=== PATIENT | male | born 1985 | race Caucasian/White ===

== ENCOUNTER 2017-01-11 15:29 | Emergency (ER) | payer OTHER | END 2017-01-11 16:53 | disposition home or self-care (01) | LOC: FER 15:29 | DX: J10.1 Influenza due to other identified influenza virus with other respiratory manifestations (principal); R09.1 Pleurisy | CPT/HCPCS: 71020; 87804; 87899; 93005 ==

== ENCOUNTER 2017-01-25 16:04 | Emergency (ER) | payer OTHER ==
[2017-01-25 16:39] LABS: BASOPHIL 0.3 % (0-2); EOSINOPHIL 0.3 % (0-5); HCT 42.7 % (42.0-52.0); HGB 14.4 g/dl (13.2-18.0); LYMPHOCYTE 26.4 % (15-48); MCH 29.1 pg (25.0-31.0); MCHC 33.7 g/dL (32.0-36.0); MCV 86.3 fL (78.0-100.0); MONOCYTE 7.1 % (0-12); MPV 11.5 fL (6.0-9.5); NEUTROPHIL 65.9 % (41-80); PLT 215 K/uL (150-400); RBC 4.95 M/uL (4.70-6.00); RDW 13.2 % (11.5-14.0)
[2017-01-25 17:00] LABS: ALBUMIN 4.2 g/dL (3.5-5.0); BILIRUBIN - TOTAL 0.5 mg/dL (0.1-1.0); POTASSIUM 3.8 mmol/L (3.5-5.1); TOTAL PROTEIN 7.2 g/dL (6.4-8.3)
== END 2017-01-25 17:50 | disposition home or self-care (01) ==
LOC: FER 16:04
PROVIDERS: Emergency Medicine
DX: R07.89 Other chest pain (principal); F41.9 Anxiety disorder, unspecified; R91.8 Other nonspecific abnormal finding of lung field; R42 Dizziness and giddiness; R11.2 Nausea with vomiting, unspecified; Z88.5 Allergy status to narcotic agent
CPT/HCPCS: 36415; 71020; 80053; 84443; 84484; 85025; 93005